=== PATIENT | female | born 1985 | race Caucasian/White ===

== ENCOUNTER → 2016-12-20 | Outpatient (CLI) | payer OTHER ==
--- NOTE | 2016-12-20 09:17 | KCIC ---
PROCEDURE Abdomen ultrasound. HISTORY Abdominal pain, right upper quadrant pain COMPARISON None FINDINGS Multiple sonographic images of the abdomen are submitted. There is no abnormality of the visualized pancreas. Abdominal aortic caliber is within normal limits up to 1.7 centimeters. There is segmental visualization of the inferior vena cava. No focal hepatic lesion is demonstrated. There is very mild coarsening of the echotexture of the liver. Right lobe liver measured 16 centimeters longitudinal. No free fluid is demonstrated. Right kidney measured 10.7 x 3.6 x 4.9 centimeters, no hydronephrosis. Left kidney measured 10 by 5 x 4.3 centimeters, no hydronephrosis. Spleen measured 9.7 centimeters. Gallbladder is present without intraluminal abnormality, wall thickening, pericholecystic fluid. Common bile duct is within normal limits at 0.4 cm. IMPRESSION 1. Other than very mild coarsening of the echotexture of liver which may be due to very mild steatosis, no significant abnormality is demonstrated. Electronically signed by: Charanjit Fay MD (Dec 20, 2016 09:15:48)
== END | disposition home or self-care (01) ==
LOC: KCIC US 08:05
PROVIDERS: ATTEND Family Medicine
DX: R10.9 Unspecified abdominal pain (principal)
CPT/HCPCS: 76700

== ENCOUNTER 2017-01-31 13:48 | Emergency (ER) | payer OTHER ==
[~2017-01-31] VITALS: Ht 157.5 cm; Wt 59.0 kg
[2017-01-31 14:31] LABS: BILIRUBIN,URINE NEGATIVE (NEG); GLUCOSE,URINE NEGATIVE (NEG); NITRITE,URINE NEGATIVE (NEG); PROTEIN,URINE NEGATIVE (NEG-TRACE); UROBILINOGEN,URINE 0.2 mg/dL (0.2 mg/dL)
[2017-01-31] MEDS ORDERED: KETOROLAC TROMETHAMINE 30 MG/ML INJ. IV ONE (14:45)
[2017-01-31] MEDS ORDERED: ONDANSETRON PF 4 MG/2 ML VIAL. IV ONE (14:45)
[2017-01-31 14:46] LABS: BACTERIA,URINE MOD /HPF (0-FEW); RBC,URINE 0 /HPF (0-2); SQUAMOUS EPITHELIAL CELL,UR MANY /LPF; YEAST,URINE PRESENT /HPF
[2017-01-31 15:00] LABS: BARBITURATES NEG (NEG); BENZODIAZEPINES NEG (NEG); CANNABINOIDS POS (NEG); COCAINE NEG (NEG); METHADONE NEG (NEG); OPIATES NEG (NEG); PHENCYCLIDINE NEG (NEG)
[2017-01-31 15:02] LABS: ETHANOL, URINE NEG (NEG)
[2017-01-31 15:02] LABS: BASO % 1 % (0-3); EOS % 9 % (0-3); HEMATOCRIT 37.3 % (36.0-47.0); HEMOGLOBIN 12.6 g/dL (12.0-15.5); LYMPH % 42 % (24-48); MEAN CORPUSCULAR HEMOGLOBIN 32 pg (25-35); MEAN CORPUSCULAR HGB CONC 34 g/dL (31-37); MEAN CORPUSCULAR VOLUME 95 fL (79-100); MONO % 11 % (0-9); NEUT % 37 % (31-73); PLATELET COUNT 236 x10^3/uL (140-400); RED BLOOD COUNT 3.92 x10^6/uL (3.50-5.40); RED CELL DISTRIBUTION WIDTH 13.3 % (11.5-14.5); WHITE BLOOD COUNT 4.8 x10^3/uL (4.0-11.0)
[2017-01-31 15:23] LABS: CALCIUM 8.9 mg/dL (8.5-10.1); CREATININE 0.9 mg/dL (0.6-1.0); GFR 88.4; POTASSIUM 3.7 mmol/L (3.5-5.1)
[2017-01-31 15:30] LABS: ALBUMIN 3.8 g/dL (3.4-5.0); ALBUMIN/GLOBULIN RATIO 1.3 (1.0-1.7); TOTAL PROTEIN 6.8 g/dL (6.4-8.2)
--- NOTE | 2017-01-31 15:41 | RAD ---
Acute abdomen series with chest, 3 views, 01/31/2017: History: Lower abdominal pain An IUD is projected over the mid pelvis. A linear radiopacity projected over the midabdomen is probably an umbilical ornament. Clinical correlation is suggested. There is only small amount of gas in the GI tract in a nonspecific pattern. No free air seen in the abdomen. There is no evidence of organomegaly. A lower pelvic calcification on the right is probably a phlebolith. The heart size is normal. The lungs are clear. There is no evidence of pleural fluid. IMPRESSION: 1. An IUD is in place. 2. No acute abdominal abnormality is detected.
--- NOTE | 2017-01-31 18:15 | RAD ---
PROCEDURE Pelvic ultrasound. HISTORY Right pelvic pain. TECHNIQUE Real-time ultrasound imaging of the pelvis using transabdominal and transvaginal window is performed. COMPARISON None. FINDINGS Right ovary measures 3.5 x 2.6 x 1.7 cm. Left ovary measures 3 x 3.1 x 2.2 cm. Normal blood flow in the ovaries. Small follicles are seen bilaterally. No evidence of adnexal mass. No cul-de-sac free fluid. The endometrial stripe is normal measuring 2 millimeters. IUD is seen in appropriate position. Uterus measures 6.9 x 5.3 x 3.8 cm. Anteverted uterus. There is a right hypoechoic fibroid near the fundus measuring 1.3 x 1.5 x 1.7 cm. IMPRESSION 1. Small right fundal fibroid. 2. IUD in appropriate position. 3. Normal blood flow in the ovaries. Electronically signed by: Jacek Rascon MD (Jan 31, 2017 18:14:06)
[2017-01-31] MEDS ORDERED: ONDA4TAB7 PO (18:27)
[2017-01-31] MEDS ORDERED: DICY10CA53 PO (18:27)
[2017-01-31 18:32] VITALS: BP 143/76
--- NOTE | 2017-01-31 18:36 | ED.ADGEN ---
Past Medical History Past Medical History: Other Additional Past Medical Histor: UTERINE FIBROIDS,OVARIAN CYST,CHOLESTASIS OF LIVER,HERNIA Past Surgical History: , Other Additional Past Surgical Histo: D&C Additional Information: 0.5 PPD Alcohol Use: None Drug Use: Marijuana Adult General Chief Complaint Chief Complaint: ABDOMINAL PAIN HPI HPI Patient is a 31 year old woman, history of ovarian cysts, fibroids, who presents to the emergency department with a complaint of lower abdominal cramping, nausea, vomiting and loose stool the past 3 days. Patient states she also developed discharge from the vagina today. She denies any possibility of STI exposures, she does have an IUD in place. Denies any injuries, denies any fevers or chills, denies any weakness numbness or tingling, any sick contacts or exposures, no recent travel or surgery. She has not taken any medications prior to going to the ED. No blood in her stool or emesis, states it is food and fluid. Patient states she was evaluated several weeks ago for her "gallbladder", and was diagnosed with cholestasis of the liver, she denies any upper abdominal symptoms at this time. Review of Systems Review of Systems Constitutional: Denies fever or chills. [] Eyes: Denies change in visual acuity. [] HENT: Denies nasal congestion or sore throat. [] Respiratory: Denies cough or shortness of breath. [] Cardiovascular: Denies chest pain or edema. [] GI: Crampy lower quadrant abdominal pain, nausea, vomiting, diarrhea, no bloody stools or bloody emesis. : Denies dysuria. [] Musculoskeletal: Denies back pain or joint pain. [] Integument: Denies rash. [] Neurologic: Denies headache, focal weakness or sensory changes. [] Endocrine: Denies polyuria or polydipsia. [] Lymphatic: Denies swollen glands. [] Psychiatric: Denies depression or anxiety. [] Current Medications Current Medications Current Medications Medications (Trade) Dose Ordered Sig/Abhilash Start Time Stop Time Status Last Admin Dose Admin Ketorolac Tromethamine (Toradol) 10 mg 1X ONCE 01/31/17 14:45 01/31/17 14:46 DC 01/31/17 15:20 10 MG Ondansetron HCl (Zofran) 4 mg 1X ONCE 01/31/17 14:45 01/31/17 14:46 DC 01/31/17 15:23 4 MG Allergies Allergies Allergies Coded Allergies Type Severity Reaction Last Updated Verified No Known Drug Allergies 01/31/17 No Physical Exam Physical Exam Constitutional: Well developed, well nourished, no acute distress, non-toxic appearance. [] HENT: Normocephalic, atraumatic, bilateral external ears normal, oropharynx moist, no oral exudates, nose normal. [] Eyes: PERRLA, EOMI, conjunctiva normal, no discharge. [] Neck: Normal range of motion, no tenderness, supple, no stridor. [] Cardiovascular:Heart rate regular rhythm, no murmur, S1, S2, rubs or gallops.] Lungs & Thorax: Bilateral breath sounds clear to auscultation, no wheezing, rhonchi, rales. No chest tenderness or crepitus. [] Abdomen: Bowel sounds normal, soft, tenderness to palpation in the suprapubic pubic region, and the lower abdomen, no rebound, rigidity, no guarding, no masses, no pulsatile masses. [] Skin: Warm, dry, no erythema, no rash. [] Back: No tenderness, no CVA tenderness. [] Extremities: No tenderness, no cyanosis, no clubbing, ROM intact, no edema. [] Neurologic: Alert and oriented X 3, normal motor function, normal sensory function, no focal deficits noted. [] Psychologic: Affect normal, judgement normal, mood normal. [] Healthy examination: Patient with a normal-appearing external examination, no injuries or lesions identified. Bimanual examination reveals a closed office, with palpable strings from IUD, patient with tenderness to palpation on the right lateral cervical region, no adnexal masses or tenderness identified, no left-sided adnexal masses or tenderness. No CMT. Patient noted to have a moderate amount of white discharge on glove, specimens taken without issue, cervix is normal in appearance. Current Patient Data Vital Signs Vital Signs Date Time Temp Pulse Resp B/P Pulse Ox O2 Delivery O2 Flow Rate FiO2 01/31/17 15:52 76 25 132/62 100 Room Air 01/31/17 14:14 98.6 98.6 Lab Values Laboratory Tests Test 01/31/17 13:29 01/31/17 14:05 01/31/17 14:48 POC Urine HCG, Qualitative Hcg negative (Negative) Urine Collection Type Unknown Urine Color Yellow Urine Clarity Cloudy Urine pH 6.0 Urine Specific [place] >=1.030 Urine Protein Negativemg/dL (NEG-TRACE) Urine Glucose (UA) Negativemg/dL (NEG) Urine Ketones (Stick) Negativemg/dL (NEG) Urine Blood Small (NEG) Urine Nitrite Negative (NEG) Urine Bilirubin Negative (NEG) Urine Urobilinogen Dipstick 0.2mg/dL (0.2 mg/dL) Urine Leukocyte Esterase Trace (NEG) Urine RBC 0/HPF (0-2) Urine WBC 1-4/HPF (0-4) Urine Squamous Epithelial Cells Many/LPF Urine Bacteria Mod/HPF (0-FEW) Urine Mucus Marked/LPF Urine Yeast Present/HPF Urine Opiates Screen Neg (NEG) Urine Methadone Screen Neg (NEG) Urine Barbiturates Neg (NEG) Urine Phencyclidine Screen Neg (NEG) Urine Amphetamine/Methamphetamine Neg (NEG) Urine Benzodiazepines Screen Neg (NEG) Urine Cocaine Screen Neg (NEG) Urine Cannabinoids Screen Pos (NEG) Urine Ethyl Alcohol Neg (NEG) White Blood Count 4.8x10^3/uL (4.0-11.0) Red Blood Count 3.92x10^6/uL (3.50-5.40) Hemoglobin 12.6g/dL (12.0-15.5) Hematocrit 37.3% (36.0-47.0) Mean Corpuscular Volume 95fL (79-100) Mean Corpuscular Hemoglobin 32pg (25-35) Mean Corpuscular Hemoglobin Concent 34g/dL (31-37) Red Cell Distribution Width 13.3% (11.5-14.5) Platelet Count 236x10^3/uL (140-400) Neutrophils (%) (Auto) 37% (31-73) Lymphocytes (%) (Auto) 42% (24-48) Monocytes (%) (Auto) 11% (0-9) H Eosinophils (%) (Auto) 9% (0-3) H Basophils (%) (Auto) 1% (0-3) Neutrophils # (Auto) 1.8x10^3uL (1.8-7.7) Lymphocytes # (Auto) 2.0x10^3/uL (1.0-4.8) Monocytes # (Auto) 0.5x10^3/uL (0.0-1.1) Eosinophils # (Auto) 0.4x10^3/uL (0.0-0.7) Basophils # (Auto) 0.0x10^3/uL (0.0-0.2) Sodium Level 143mmol/L (136-145) Potassium Level 3.7mmol/L (3.5-5.1) Chloride Level 107mmol/L (98-107) Carbon Dioxide Level 28mmol/L (21-32) Anion Gap 8 (6-14) Blood Urea Nitrogen 11mg/dL (7-20) Creatinine 0.9mg/dL (0.6-1.0) Estimated GFR (Cockcroft-Gault) 88.4 BUN/Creatinine Ratio 12 (6-20) Glucose Level 87mg/dL (70-99) Calcium Level 8.9mg/dL (8.5-10.1) Total Bilirubin 1.0mg/dL (0.2-1.0) Aspartate Amino Transferase (AST) 89U/L (15-37) H Alanine Aminotransferase (ALT) 61U/L (14-59) H Alkaline Phosphatase 70U/L (46-116) Total Protein 6.8g/dL (6.4-8.2) Albumin 3.8g/dL (3.4-5.0) Albumin/Globulin Ratio 1.3 (1.0-1.7) Lipase 83U/L (73-393) Laboratory Tests 01/31/17 14:48 Laboratory Tests 01/31/17 14:48 Microbiology 01/31/17 Wet Prep - Final, Complete EKG EKG Not indicated. [] Radiology/Procedures Radiology/Procedures [] [facility] [address] [place], [place] [id number] IMAGING REPORT Signed PATIENT: YG NGUYỄN ACCOUNT: [id number] : 1985 LOCATION: ER AGE: 31 SEX: F EXAM STATUS: REG ER ORD. PHYSICIAN: LANRE JAIME DO REASON: RL pelvic pain PROCEDURE: PELVIS COMPLETE PROCEDURE Pelvic ultrasound. HISTORY Right pelvic pain. TECHNIQUE Real-time ultrasound imaging of the pelvis using transabdominal and transvaginal window is performed. COMPARISON None. FINDINGS Right ovary measures 3.5 x 2.6 x 1.7 cm. Left ovary measures 3 x 3.1 x 2.2 cm. Normal blood flow in the ovaries. Small follicles are seen bilaterally. No evidence of adnexal mass. No cul-de-sac free fluid. The endometrial stripe is normal measuring 2 millimeters. IUD is seen in appropriate position. Uterus measures 6.9 x 5.3 x 3.8 cm. Anteverted uterus. There is a right hypoechoic fibroid near the fundus measuring 1.3 x 1.5 x 1.7 cm. IMPRESSION 1. Small right fundal fibroid. 2. IUD in appropriate position. 3. Normal blood flow in the ovaries. Electronically signed by: Jacek Rascon MD (Jan 31, 2017 18:14:06) DICTATED and SIGNED BY: JACEK RASCON MD DATE: 01/31/17 181 CC: LANRE JAIME DO; NO PCP ~ Impressions: [facility] [address] [place] [place] [address] IMAGING REPORT Signed PATIENT: YG NGUYỄN ACCOUNT: [id number] : 1985 LOCATION: ER AGE: 31 SEX: F EXAM STATUS: REG ER ORD. PHYSICIAN: LANRE JAIME DO REASON: abd pain PROCEDURE: ACUTE ABDOMEN SERIES Acute abdomen series with chest, 3 views, 01/31/2017: History: Lower abdominal pain An IUD is projected over the mid pelvis. A linear radiopacity projected over the midabdomen is probably an umbilical ornament. Clinical correlation is suggested. There is only small amount of gas in the GI tract in a nonspecific pattern. No free air seen in the abdomen. There is no evidence of organomegaly. A lower pelvic calcification on the right is probably a phlebolith. The heart size is normal. The lungs are clear. There is no evidence of pleural fluid. IMPRESSION: 1. An IUD is in place. 2. No acute abdominal abnormality is detected. DICTATED and SIGNED BY: YELITZA GUADARRAMA MD DATE: 01/31/17 1535 CC: LANRE JAIME DO; NO PCP ~ Course & Med Decision Making Course & Med Decision Making Pertinent Labs and Imaging studies reviewed. (See chart for details) Due to patient's complaints, laboratory studies, acute abdominal x-ray and ultrasound of the pelvis were obtained after discussion at bedside. Patient also received pain medication and antiemetics. Laboratory studies reveal no acutely concerning findings, ultrasound of the pelvis reveals a right fibroid, consistent with location of the patient's discomfort. On reevaluation patient is feeling much better, cramping has resolved, and she's had no further episodes of vomiting or diarrhea in the ED. Patient states that he does have follow-up with a primary care provider, [facility], but was receptive to additional resources, she was given a list of providers and contact information for Dr. Ariza of [facility]. Instructed the patient to stay well-hydrated, get plenty of rest, follow dietary recommendations, she may be experiencing a viral illness causing her other symptoms. Concerning symptoms to prompt return to the ED for additional evaluation were discussed. Patient received perfusion for Bentyl and Zofran in the ED, voiced understanding and agreement with plan and precautions as stated, and was discharged home in stable condition with plan as above. Dragon Disclaimer Dragon Disclaimer This electronic medical record was generated, in whole or in part, using a voice recognition dictation system. Departure Impression: Primary Impression: Fibroid Additional Impressions: Nausea and vomiting Abdominal pain Disposition: 01 HOME, SELF-CARE Condition: IMPROVED Scripts Dicyclomine Hcl (Bentyl)10 Mg [id number] Mg PO QID PRN PAIN #12 TAB Prov:LANRE JAIME DO 01/31/17 Ondansetron Hcl (Zofran)4 Mg Tablet4 Mg PO BID PRN NAUSEA/VOMITING #12 TAB Prov:LANRE JAIME DO 01/31/17 Problem Qualifiers LANRE JAIME DO Jan 31, 2017 18:36
== END 2017-01-31 18:37 | disposition home or self-care (01) ==
LOC: ER 13:48
DX: D25.9 Leiomyoma of uterus, unspecified (principal); R11.2 Nausea with vomiting, unspecified; F12.10 Cannabis abuse, uncomplicated; F17.200 Nicotine dependence, unspecified, uncomplicated
CPT/HCPCS: 36415; 74022; 76856; 80053; 80305; 80320; 81001; 81025; 83690; 85027; 87491; 87591; 96374; 96375; 99285; J1885; J2405; Q0111; G0481

== ENCOUNTER 2019-10-06 09:16 | Emergency (ER) | payer SELFPAY ==
[~2019-10-06] VITALS: Ht 157.5 cm; Wt 59.9 kg
[~2019-10-06 09:16] MED LIST: DICY10CA53 PO; ONDA4TAB7 PO
[2019-10-06 09:34] VITALS: BP 134/69
--- NOTE | 2019-10-06 10:03 | PHYS DOC ---
Past Medical History Past Medical History: Other Additional Past Medical Histor: UTERINE FIBROIDS,OVARIAN CYST,CHOLESTASIS OF LIVER,HERNIA, heart murmur Past Surgical History: , Other Additional Past Surgical Histo: D&C Alcohol Use: Rarely Drug Use: None Adult General Chief Complaint Chief Complaint: FLU SYMPTOM HPI HPI Patient is a 33 year old AA female who presents to the emergency department with complaints of epigastric pain and flu symptoms. Patient states that symptoms began 3 days ago. She has noticed an increase in her epigastric pain after taking multiple OTC medications for her flu like sx including dayquil, nyquil, benadryl, sudafed, tylenol, and ibuprofen. She states the epigastric pain makes her feel nauseated, but denies any vomiting or diarrhea. Pt states she last had a fever 2 days ago. She has had a dry cough for the last 3 days. Currently, she rates the pain an 8/10 on the pain scale she denies any alleviating factors. Pt states she has been told her abdominal pain was due to GERD in the past. All other ROS is neg unless otherwise noted in HPI. Review of Systems Review of Systems See Above Allergies Allergies Allergies Coded Allergies Type Severity Reaction Last Updated Verified No Known Drug Allergies 01/31/17 No Physical Exam Physical Exam See Above Constitutional: Well developed, well nourished, no acute distress, non-toxic appearance. [] HENT: Normocephalic, atraumatic, bilateral external ears normal, nose normal. [] Eyes: PERRLA, EOMI, conjunctiva normal, no discharge. [] Neck: Normal range of motion, no stridor. [] Cardiovascular:Heart rate regular rhythm, no murmur [] Lungs & Thorax: Bilateral breath sounds clear to auscultation, Respirations even and unlabored, no retractions, no respiratory distress [] Abdomen: Bowel sounds normal, soft, epigastric TTP, no rebound tenderness, no guarding, no masses, no pulsatile masses. [] Skin: Warm, dry, no erythema, no rash. [] Extremities: No cyanosis, ROM intact Neurologic: Alert and oriented X 3, no focal deficits noted. [] Psychologic: Affect normal, judgement normal, mood normal. [] Current Patient Data Vital Signs Vital Signs Date Time Temp Pulse Resp B/P (MAP) Pulse Ox O2 Delivery O2 Flow Rate FiO2 10/06/19 09:34 98.3 70 16 134/69 (90) 98 Room Air 98.3 EKG EKG [] Radiology/Procedures Radiology/Procedures [] Course & Med Decision Making Course & Med Decision Making Pertinent Labs and Imaging studies reviewed. (See chart for details) dx: medical screening exam A medical screening exam was performed, patient was found to have no emergent medical condition. The plan of care would've included a GI cocktail, diet instructions, and GERD instructions . However, the patient eloped after talking with registration. [] [] Dragon Disclaimer Dragon Disclaimer This electronic medical record was generated, in whole or in part, using a voice recognition dictation system. Departure Departure Impression: Primary Impression: Encounter for medical screening examination Disposition: 01 HOME, SELF-CARE (pt eloped after speaking with registration) Condition: STABLE Referrals: NO PCP (PCP) KYLIE BRASHER APRN Oct 06, 2019 10:03
== END 2019-10-06 10:07 | disposition home or self-care (01) ==
LOC: ER 09:16
DX: R10.13 Epigastric pain (principal)
CPT/HCPCS: 99281-25

== ENCOUNTER 2020-03-19 08:29 | Emergency (ER) | payer OTHER ==
[~2020-03-19] VITALS: Ht 157.5 cm; Wt 62.2 kg
[2020-03-19] MEDS ORDERED: IV NORMAL SALINE 1000ML BAG 1,000 ML IV ONE (09:30)
[2020-03-19] MEDS ORDERED: ONDANSETRON PF 4 MG/2 ML VIAL. IVP ONE (09:30)
[2020-03-19] MEDS ORDERED: MORPHINE SULFATE 4 MG/ML VIAL. IV ONE ×2 (09:30→11:30)
[2020-03-19 09:48] LABS: CALCIUM 8.8 mg/dL (8.5-10.1); CREATININE 1.1 mg/dL (0.6-1.0); GFR 68.8; POTASSIUM 3.6 mmol/L (3.5-5.1)
[2020-03-19 09:54] LABS: ALBUMIN 3.9 g/dL (3.4-5.0); ALBUMIN/GLOBULIN RATIO 1.2 (1.0-1.7); TOTAL BILIRUBIN 1.5 mg/dL (0.2-1.0); TOTAL PROTEIN 7.2 g/dL (6.4-8.2)
[2020-03-19 10:00] LABS: BILIRUBIN,URINE NEGATIVE (NEG); CLARITY,URINE CLEAR; COLOR,URINE AMBER; NITRITE,URINE NEGATIVE (NEG); PROTEIN,URINE 30 mg/dL (NEG-TRACE)
[2020-03-19 10:00] LABS: BASO % 0 % (0-3); EOS % 0 % (0-3); HEMATOCRIT 41.1 % (36.0-47.0); HEMOGLOBIN 13.9 g/dL (12.0-15.5); LYMPH # 0.6 x10^3/uL (1.0-4.8); LYMPH % 7 % (24-48); MEAN CORPUSCULAR HEMOGLOBIN 33 pg (25-35); MEAN CORPUSCULAR HGB CONC 34 g/dL (31-37); MEAN CORPUSCULAR VOLUME 96 fL (79-100); MONO # 0.3 x10^3/uL (0.0-1.1); MONO % 4 % (0-9); NEUT # 7.5 x10^3/uL (1.8-7.7); NEUT % 88 % (31-73); PLATELET COUNT 210 x10^3/uL (140-400); RED BLOOD COUNT 4.27 x10^6/uL (3.50-5.40); RED CELL DISTRIBUTION WIDTH 13.1 % (11.5-14.5); WHITE BLOOD COUNT 8.5 x10^3/uL (4.0-11.0)
[2020-03-19] MEDS ORDERED: CONTRAST GIVEN. MC PRN (10:00)
[2020-03-19] MEDS ORDERED: IOHEXOL 350 MG/ML 100 ML VIAL. IV ONE (10:00)
[2020-03-19] MEDS ORDERED: IOHEXOL 300 MG/ML 100ML VIAL. IV ONE (10:00)
[2020-03-19 10:35] LABS: BACTERIA,URINE 0 /HPF (0-FEW); RBC,URINE 0 /HPF (0-2); SQUAMOUS EPITHELIAL CELL,UR FEW /LPF; WBC,URINE OCC /HPF (0-4)
--- NOTE | 2020-03-19 10:45 | RAD ---
CT study of the abdomen and pelvis with contrast Clinical indications: Left lower quadrant abdominal pain. TECHNIQUE: After IV infusion of 75 cc of Omnipaque 300, helical CT scanning of the abdomen and pelvis was performed. No GI contrast was administered. This may decrease the sensitivity to detect GI tract pathology. PQRS compliance Statement One or more of the following individualized dose reduction techniques were utilized for this study: 1. Automated exposure control 2. Adjustment of the mA and/or kV according to patient size 3. Use of iterative reconstruction technique COMPARISON: No previous CT available. FINDINGS: The liver and spleen and pancreas and gallbladder are normal. No extra hepatic biliary ductal dilatation is seen. No adrenal mass is evident. Small punctate stone is seen within the upper pole of the left kidney measuring 2.5 mm in size. No hydronephrosis or hydroureter or ureteral stone is seen. Urinary bladder is not abnormally distended. IUD is seen within the central aspect of the uterus which is proper positioning. At least 3 uterine fibroids are seen with the largest measuring 3 cm. There is an enhancing corpus luteum cyst of the left ovary measuring 16 mm. No free fluid is evident. The right ovary is unremarkable. No focal aneurysmal dilatation of the abdominal aorta is seen. No enlarged abdominal or pelvic lymphadenopathy is evident. There is focal wall thickening of the distal descending colon with mild pericolonic inflammatory change. There is adjacent diverticuli. The findings are consistent with mild diverticulitis. No abscess or free air or bowel obstruction is seen. The terminal ileum is unremarkable. There is no CT findings of appendicitis. No lung base consolidative infiltrate is seen. No lytic process is seen. IMPRESSION: Mild diverticulitis of the distal descending colon. Nonobstructing 2.5 mm stone of the upper pole of the left kidney. 3 uterine fibroids. 16 mm corpus seems cyst of the left ovary. No free fluid. Electronically signed by: Han Douglass MD (03/19/2020 10:42 AM) [id number]
[2020-03-19] MEDS ORDERED: CIPR500T94 PO (11:01)
[2020-03-19] MEDS ORDERED: HYDR-3164 PO (11:01)
[2020-03-19] MEDS ORDERED: METR500T PO (11:01)
--- NOTE | 2020-03-19 11:02 | PHYS DOC ---
Past Medical History Past Medical History: Other Additional Past Medical Histor: UTERINE FIBROIDS,OVARIAN CYST,CHOLESTASIS OF LIVER,HERNIA, heart murmur Past Surgical History: , Other Additional Past Surgical Histo: D&C Smoking Status: Current Every Day Smoker Alcohol Use: Rarely Drug Use: None General Adult EDM: Chief Complaint: ABDOMINAL PAIN HPI: HPI: Patient is a 34 year old [f__sex] who presents with [] Review of Systems: Review of Systems: Constitutional: Denies fever or chills. [] Eyes: Denies change in visual acuity. [] HENT: Denies nasal congestion or sore throat. [] Respiratory: Denies cough or shortness of breath. [] Cardiovascular: Denies chest pain or edema. [] GI: Denies abdominal pain, nausea, vomiting, bloody stools or diarrhea. [] : Denies dysuria. [] Musculoskeletal: Denies back pain or joint pain. [] Integument: Denies rash. [] Neurologic: Denies headache, focal weakness or sensory changes. [] Endocrine: Denies polyuria or polydipsia. [] Lymphatic: Denies swollen glands. [] Psychiatric: Denies depression or anxiety. [] Heart Score: Risk Factors: Risk Factors: DM, Current or recent (<one month) smoker, HTN, HLP, family history of CAD, obesity. Risk Scores: Score 0 - 3: 2.5% MACE over next 6 weeks - Discharge Home Score 4 - 6: 20.3% MACE over next 6 weeks - Admit for Clinical Observation Score 7 - 10: 72.7% MACE over next 6 weeks - Early Invasive Strategies Current Medications: Current Medications Medications (Trade) Dose Ordered Sig/Abhilash Start Time Stop Time Status Last Admin Dose Admin Info (CONTRAST GIVEN -- Rx MONITORING) 1 each PRN DAILY PRN 03/19/20 10:00 03/21/20 09:59 Iohexol (Omnipaque 300 Mg/ml) 75 ml 1X ONCE 03/19/20 10:00 03/19/20 10:02 DC 03/19/20 10:07 75 ML Iohexol (Omnipaque 350 Mg/ml) 75 ml 1X ONCE 03/19/20 10:00 03/19/20 10:01 DC Morphine Sulfate (Morphine Sulfate) 4 mg 1X ONCE 03/19/20 09:30 03/19/20 09:31 DC 03/19/20 09:39 4 MG Ondansetron HCl (Zofran) 4 mg 1X ONCE 03/19/20 09:30 03/19/20 09:31 DC 03/19/20 09:38 4 MG Sodium Chloride 1,000 ml @ 1,000 mls/hr 1X ONCE 03/19/20 09:30 03/19/20 10:29 DC 03/19/20 09:39 1,000 MLS/HR Allergies: Allergies: Allergies Coded Allergies Type Severity Reaction Last Updated Verified No Known Drug Allergies 01/31/17 No Physical Exam: PE: Constitutional: Well developed, well nourished, no acute distress, non-toxic appearance. [] HENT: Normocephalic, atraumatic, bilateral external ears normal, oropharynx moist, no oral exudates, nose normal. [] Eyes: PERRLA, EOMI, conjunctiva normal, no discharge. [] Neck: Normal range of motion, no tenderness, supple, no stridor. [] Cardiovascular:Heart rate regular rhythm, no murmur [] Lungs & Thorax: Bilateral breath sounds clear to auscultation [] Abdomen: Bowel sounds normal, soft, no tenderness, no masses, no pulsatile masses. [] Skin: Warm, dry, no erythema, no rash. [] Back: No tenderness, no CVA tenderness. [] Extremities: No tenderness, no cyanosis, no clubbing, ROM intact, no edema. [] Neurologic: Alert and oriented X 3, normal motor function, normal sensory function, no focal deficits noted. [] Psychologic: Affect normal, judgement normal, mood normal. [] Current Patient Data: Labs: Laboratory Tests Test 03/19/20 08:37 03/19/20 08:41 03/19/20 09:20 Urine Collection Type Unknown Urine Color Cinthia Urine Clarity Clear Urine pH 7.0 (<5.0-8.0) Urine Specific [place] 1.025 (1.000-1.030) Urine Protein 30 mg/dL (NEG-TRACE) Urine Glucose (UA) Negative mg/dL (NEG) Urine Ketones (Stick) 40 mg/dL (NEG) Urine Blood Negative (NEG) Urine Nitrite Negative (NEG) Urine Bilirubin Negative (NEG) Urine Urobilinogen Dipstick 1.0 mg/dL (0.2 mg/dL) Urine Leukocyte Esterase Negative (NEG) Urine RBC 0 /HPF (0-2) Urine WBC Occ /HPF (0-4) Urine Squamous Epithelial Cells Few /LPF Urine Bacteria 0 /HPF (0-FEW) Urine Mucus Mod /LPF POC Urine HCG, Qualitative Hcg negative (Negative) White Blood Count 8.5 x10^3/uL (4.0-11.0) Red Blood Count 4.27 x10^6/uL (3.50-5.40) Hemoglobin 13.9 g/dL (12.0-15.5) Hematocrit 41.1 % (36.0-47.0) Mean Corpuscular Volume 96 fL (79-100) Mean Corpuscular Hemoglobin 33 pg (25-35) Mean Corpuscular Hemoglobin Concent 34 g/dL (31-37) Red Cell Distribution Width 13.1 % (11.5-14.5) Platelet Count 210 x10^3/uL (140-400) Neutrophils (%) (Auto) 88 % (31-73) H Lymphocytes (%) (Auto) 7 % (24-48) L Monocytes (%) (Auto) 4 % (0-9) Eosinophils (%) (Auto) 0 % (0-3) Basophils (%) (Auto) 0 % (0-3) Neutrophils # (Auto) 7.5 x10^3/uL (1.8-7.7) Lymphocytes # (Auto) 0.6 x10^3/uL (1.0-4.8) L Monocytes # (Auto) 0.3 x10^3/uL (0.0-1.1) Eosinophils # (Auto) 0.0 x10^3/uL (0.0-0.7) Basophils # (Auto) 0.0 x10^3/uL (0.0-0.2) Platelet Estimate Pending Sodium Level 137 mmol/L (136-145) Potassium Level 3.6 mmol/L (3.5-5.1) Chloride Level 101 mmol/L (98-107) Carbon Dioxide Level 25 mmol/L (21-32) Anion Gap 11 (6-14) Blood Urea Nitrogen 9 mg/dL (7-20) Creatinine 1.1 mg/dL (0.6-1.0) H Estimated GFR (Cockcroft-Gault) 68.8 BUN/Creatinine Ratio 8 (6-20) Glucose Level 106 mg/dL (70-99) H Calcium Level 8.8 mg/dL (8.5-10.1) Total Bilirubin 1.5 mg/dL (0.2-1.0) H Aspartate Amino Transferase (AST) 20 U/L (15-37) Alanine Aminotransferase (ALT) 31 U/L (14-59) Alkaline Phosphatase 77 U/L (46-116) Total Protein 7.2 g/dL (6.4-8.2) Albumin 3.9 g/dL (3.4-5.0) Albumin/Globulin Ratio 1.2 (1.0-1.7) Lipase 46 U/L (73-393) L Laboratory Tests 03/19/20 09:20 Laboratory Tests 03/19/20 09:20 Vital Signs: Vital Signs Date Time Temp Pulse Resp B/P (MAP) Pulse Ox O2 Delivery O2 Flow Rate FiO2 03/19/20 09:08 99.1 80 18 154/67 (96) 100 Room Air 99.1 EKG: EKG: [] Radiology/Procedures: Radiology/Procedures: [] Impression: IMPRESSION: Mild diverticulitis of the distal descending colon. Nonobstructing 2.5 mm stone of the upper pole of the left kidney. 3 uterine fibroids. 16 mm corpus seems cyst of the left ovary. No free fluid. Course & Med Decision Making: Course & Med Decision Making Pertinent Labs and Imaging studies reviewed. (See chart for details) Ordered labs, UA, urine , CT abdomen pelvis with IV contrast, IV morphine, IV Zofran, IV fluids Patient does have mild leukocytosis. CT shows that patient has mild diverticulitis. There also fibroid in the uterus. There is also left ovarian cyst. Patient is given another dose of IV morphine. I did offer admission to patient the patient wants to go home and started to be treated as an outpatient. After patient that she needs to return to the ED if she starts developing fever, intractable vomiting or intractable abdominal pain. Patient is given p.o. challenge in the ER and she does not vomit. Patient will be discharged home Cipro, Flagyl, [place] and Zofran. Discussed results and plan of care with patient. Patient is instructed to follow up with PCP in one to 2 days. Appropriate discharge instructions given to patient to return to the ED or to seek immediate medical evaluation. Patient is instructed to return to the ED if symptoms worsen or if any concerns. Yareli Disclaimer: Yareli Disclaimer: This electronic medical record was generated, in whole or in part, using a voice recognition dictation system. Departure Departure Impression: Primary Impression: Diverticulitis Additional Impressions: Uterine fibroid Ovarian cyst Disposition: HOME, SELF-CARE Condition: IMPROVED Referrals: NO PCP (PCP) Patient Instructions: Diverticulitis, Fibroids, [id number], Ovarian Cyst Scripts Ondansetron Hcl (ZOFRAN) 4 Mg Tablet 4 MG PO PRN TID PRN for NAUSEA, #15 nausea/vomiting Prov: LATOYA REDDY DO 03/19/20 Hydrocodone/Apap 5-325 (NORCO 5-325 TABLET) 1 Each Tablet 1 EACH PO PRN Q6HRS PRN for PAIN MDD 6 TABS, #15 as needed for pain Prov: LATOYA REDDY E DO 03/19/20 Metronidazole (FLAGYL) 500 Mg Tablet 500 MG PO TID for 10 Days, #30 TAB Prov: GOLCHLOÉLATOYA E DO 03/19/20 Ciprofloxacin Hcl (CIPRO) 500 Mg Tablet 1 TAB PO BID for 10 Days, #20 TAB 0 Refills Prov: ANN-MARIE REDDYLI E DO 03/19/20 BARRYLAOTYA E DO March 19, 2020 11:02
[2020-03-19 12:00] VITALS: BP 142/70
[2020-03-19 12:38] LABS: % BANDS 2 % (0-9); % LYMPHS 9 % (24-48); % MONOS 5 % (0-10); % SEGS 84 % (35-66); PLT ESTIMATE ADEQUATE (ADEQUATE)
[2020-03-19] MEDS ORDERED: metroNIDAZOLE 500 MG TABLET PO ONE (12:45)
[2020-03-19] MEDS ORDERED: ONDA4TAB7 PO (12:45)
[2020-03-19] MEDS ORDERED: CIPROFLOXACIN HCL 250 MG TABLET. PO ONE (12:45)
== END 2020-03-19 13:08 | disposition home or self-care (01) ==
LOC: ER 08:29
DX: K57.92 Diverticulitis of intestine, part unspecified, without perforation or abscess without bleeding (principal); D25.9 Leiomyoma of uterus, unspecified; N83.202 Unspecified ovarian cyst, left side; R11.2 Nausea with vomiting, unspecified; F17.200 Nicotine dependence, unspecified, uncomplicated
CPT/HCPCS: 36415; 74177; 80053; 81001; 81025; 83690; 85007; 85025; 96361; 96374; 96375; 96376; 99285; J2270; J2405; J7030; Q9967

== ENCOUNTER → 2020-04-26 | Outpatient (CLI) | payer OTHER ==
[~2020-04-26] MED LIST changes: +CIPR500T94 PO; +HYDR-3164 PO; +METR500T PO
--- NOTE | 2020-04-26 17:27 | RAD ---
DATE: 04/26/2020 11:32 AM EXAM: MAMMO CASE RAQUEL JOHNSON, BREAST ultrasound LEFT HISTORY: 30-year-old woman with a left breast lump. COMPARISON: None. This will serve as a baseline. TECHNIQUE: Bilateral CC and MLO views of the breasts were performed. Bilateral breast tomosynthesis was performed in CC and MLO projections. This study was interpreted with the benefit of Computerized Aided Detection (CAD). A triangular marker on the lateral aspect of the left breast identifies the patient's reported area of palpable concern. Targeted ultrasound was pursued of this area as well. FINDINGS: Breast Density: DENSE The breast Parenchyma is dense, which could reduce the sensitivity of mammography. Breast parenchyma level density D. There is no mammographic correlate to the area of reported palpable concern on self exam as identified by the patient. No suspicious masses, microcalcifications or architectural distortion is present to suggest malignancy in either breast. The visualized axillae are unremarkable. Targeted ultrasound of the left breast in the area of reported palpable concern revealed no sonographic abnormality. This should be managed clinically. IMPRESSION: No evidence of malignancy. BI-RADS CATEGORY: 1 NEGATIVE RECOMMENDED FOLLOW-UP: CLIN FOLLOW UP IMAGING CLINICALLY INDICATED age-appropriate annual screening mammography is recommended, unless clinically indicated sooner based on symptoms or change in physical exam. If there are any clinically suspicious findings, they should be considered for biopsy even in the absence of any suspicious imaging correlate. Discussed with patient PQRS compliance statement: Patient information was entered into a reminder system with a target due date for the next mammogram. Mammography is a sensitive method for finding small breast cancers, but it does not detect them all and is not a substitute for careful clinical examination. A negative mammogram does not negate a clinically suspicious finding and should not result in delay in biopsying a clinically suspicious abnormality. "Our facility is accredited by the [employer] Mammography Program."
== END | disposition home or self-care (01) ==
LOC: MAMMO 11:25
PROVIDERS: ATTEND Family Medicine
DX: R92.2 Inconclusive mammogram (principal); N63.20 Unspecified lump in the left breast, unspecified quadrant
CPT/HCPCS: 76641; 77066; G0279; 77062

== ENCOUNTER → 2020-06-07 | Outpatient (CLI) | payer OTHER ==
--- NOTE | 2020-06-07 12:44 | KCIC ---
EXAM: Right foot 3 views. HISTORY: Right foot pain after injury. COMPARISON: None. FINDINGS: Three views of the right foot are obtained. No fractures are identified. Alignment is normal. Joint spaces are maintained. There is a moderate plantar calcaneal spur. IMPRESSION: 1. No fracture. Electronically signed by: Govind Roblero MD (06/07/2020 12:41 PM) [id number]
== END | disposition home or self-care (01) ==
LOC: KCIC 12:24
PROVIDERS: ATTEND Family Medicine
DX: M77.31 Calcaneal spur, right foot (principal); M79.671 Pain in right foot
CPT/HCPCS: 73630

== ENCOUNTER → 2021-12-01 | Day surgery (SDC) | payer OTHER ==
[~2021-12-01] VITALS: Ht 157.5 cm; Wt 60.0 kg
[~2021-12-01] MED LIST changes: +IV RINGERS,LACTATED 1000ML 1,000 ML IV SCH; +PROPOFOL 10 MG/ML (20ML) VIAL. IV ONE
[2021-12-01 06:57] VITALS: BP 115/73
[2021-12-01 07:45] VITALS: BP 123/59
--- NOTE | 2021-12-04 15:07 | PATHOLOGY ---
[facility] Accession Number: [id number] . 01 Material submitted: . PART A: duodenum - DUODENAL BIOPSY PART B: esophagus - ESOPHAGEAL BIOPSY PART C: colon - RANDOM COLON BIOPSY PART D: colon - SIGMOID COLON POLYP. Modifiers: sigmoid . 01 Clinical history: . GERD EGD/COLONOSCOPY . 02 Diagnosis: A. Duodenal biopsies: - No significant pathologic abnormalities. . B. Esophageal biopsies: - Reflux changes. . C. Colonic mucosa, random colon biopsies: - No significant pathologic abnormalities. . D. Colon biopsy, sigmoid colon polyp: - Tubular adenoma. (ANGELAM:alan; 12/04/2021) [facility] 12/04/2021 1439 Local . 02 Comment: Sections of the duodenal biopsy reveal multiple segments of duodenal and small intestine mucosa. Where best oriented, the mucosal villi show no sprue-like changes or significant inflammatory changes. . Sections of the esophageal biopsy reveal multiple segments of mildly hyperplastic squamous esophageal mucosa, and a single segment of gastric mucosa showing mild to moderate chronic inflammation. The findings are consistent with reflux changes. There is no evidence of Bolanos's change, dysplasia, or malignancy. . Sections of the random colon biopsy reveal multiple segments of colonic mucosa containing several mucosal-associated lymphoid aggregates. There is no evidence of a chronic destructive colitis, lymphocytic colitis, or collagenous colitis. . Sections of the sigmoid colon biopsy reveal a tubular adenoma showing no high-grade dysplasia or evidence of malignancy. (JPM:alan; 12/04/2021) . 02 Electronically signed: . Mukund Cool MD, Pathologist NPI- [id number] . 01 Gross description: . A. The specimen is received in formalin, labeled "Maddie Ragsdale, duodenal BX". Received are multiple segments of white-simmons tissue ranging in size from 0.2-0.5 cm in maximum dimensions. The specimen is entirely submitted in cassette A1. . B. The specimen is received in formalin, labeled "Jn, Maddie, esophageal BX". Received are 5 segments of white-simmons tissue ranging in size from 0.3-0.4 cm in maximum dimensions. The specimen is entirely submitted in cassette B1. . C. The specimen is received in formalin, labeled "Lethao, Maddie, random colon BX". Received are multiple segments of light brown tissue ranging in size from 0.3-0.5 cm in maximum dimensions. The specimen is entirely submitted in cassette C1. . D. The specimen is received in formalin, labeled "Jn, Maddie, sigmoid colon polyp". Received is a single segment of dark brown, polypoid tissue measuring 0.5 cm in maximum dimensions. The specimen is entirely submitted in cassette D1. ([facility]; 12/01/2021) NRI/NRI 12/01/2021 1613 Local . 02 Pathologist provided ICD-10: K21.9, D12.5 . 02 CPT . 291760, 522011, 010002, [id number] Specimen Comment: A courtesy copy of this report has been sent to [phone], [phone] Specimen Comment: [id number] Specimen Comment: Report sent to / DR NOBLE Specimen Comment: A duplicate report has been generated due to demographic updates. Performed at: 01 [facility] [address], [place] [id number] MD Danilo Bell MD Phone: [phone] Performed at: 02 [facility] [address], [place] [id number] MD Mukund Cool MD Phone: [phone]
== END | disposition home or self-care (01) ==
LOC: SURG 06:32
PROVIDERS: ATTEND Internal Medicine Gastroenterology
DX: R19.7 Diarrhea, unspecified (principal); K21.00 Gastro-esophageal reflux disease with esophagitis, without bleeding; D12.5 Benign neoplasm of sigmoid colon; R12 Heartburn; K63.89 Other specified diseases of intestine; K31.89 Other diseases of stomach and duodenum; J45.909 Unspecified asthma, uncomplicated; F17.210 Nicotine dependence, cigarettes, uncomplicated; Z79.899 Other long term (current) drug therapy; Z98.890 Other specified postprocedural states; Z72.89 Other problems related to lifestyle
CPT/HCPCS: 43239; 45380; 45385; 81025; 88305; J2704; 45384